=== PATIENT | male | born 1960 | race Caucasian/White ===

== ENCOUNTER → 2018-12-04 10:12 | Outpatient (CLI) | payer OTHER, SELFPAY ==
--- NOTE | 2018-12-04 | DI.RAD.S_ITS ---
PROCEDURE: FL UPPER GI W AIR INDICATIONS: ESOPHAGEAL STRUCTURE COMPARISON: [facility], , BARIUM SWALLOW, 07/06/2012, 8:06. FINDINGS: KUB: Preprocedural ramp agent film demonstrates a normal bowel gas pattern. No suspicious abdominal calcifications. Visualized solid organ contours appear normal. Bony structures appear unremarkable. Esophagus: Esophageal mucosa is normal on air-contrast views. On single-contrast views, there are a few episodes of spontaneous, minimal tertiary contractions without retrograde flow ingested contrast. Otherwise, there is normal esophageal peristalsis. No strictures, extrinsic mass effects, or diverticula. No hiatal hernia or elicited gastroesophageal reflux. Stomach: The stomach is normally distensible, with normal rugal fold thickness. No mucosal masses or ulcers. Pylorus and duodenal bulb appear normal in morphology. Duodenal folds are normal in thickness as well. Incidental note of a small duodenal diverticulum within the second portion of the duodenum. IMPRESSION: Incidental note of small duodenal diverticulum within the second portion of the duodenum; otherwise, normal examination. Dictated by: Ricardo Polanco M.D. on 12/05/2018 at 11:00 Approved by: Ricardo Polanco M.D. on 12/05/2018 at 11:12
== END ==
PROVIDERS: Family Provider Family Medicine; PCP Family Medicine; Visit Provider Family Medicine
DX: K22.2 Esophageal obstruction (principal); K57.10 Diverticulosis of small intestine without perforation or abscess without bleeding
CPT/HCPCS: 74247

== ENCOUNTER → 2021-06-06 10:51 | Outpatient (CLI) | payer OTHER, SELFPAY ==
--- NOTE | 2021-06-06 | DI.RAD.S_ITS ---
PROCEDURE: XR LUMBAR SPINE 2-3V INDICATIONS: LOW BACK PAIN TECHNIQUE: 3 views of the lumbar spine were acquired. COMPARISON: None. FINDINGS: Bones: 5 [id number] vertebrae are present. Trace retrolisthesis L2 on three, L3 on four, and trace anterolisthesis L4 on five. Moderate disc height loss at L2-3 and L3-4 with endplate spur formation. Facet sclerosis and mild hypertrophy at L5-S1.. No vertebral body compression fractures. No suspicious bony lesions. Soft tissues: Overlying bowel gas pattern is normal. No suspicious soft tissue calcifications. IMPRESSION: Mild multilevel degenerative disc height loss, endplate changes, and spondylosis. Dictated by: Giovanna Lieberman M.D. on 06/06/2021 at 13:03 Approved by: Giovanna Lieberman M.D. on 06/06/2021 at 13:04
== END ==
PROVIDERS: PCP Family Medicine; Referring Provider Family Medicine; Visit Provider Family Medicine
DX: M54.5 Low back pain (principal); M47.817 Spondylosis without myelopathy or radiculopathy, lumbosacral region
CPT/HCPCS: 72100

== ENCOUNTER → 2022-10-14 09:07 | Outpatient (CLI) | payer OTHER, SELFPAY ==
[2022-10-14 11:04] LABS: COVID19 -Nasal RAPID Negative (Negative)
== END ==
PROVIDERS: PCP Family Medicine; Visit Provider Surgery
DX: Z20.822 Contact with and (suspected) exposure to COVID-19 (principal); Z01.812 Encounter for preprocedural laboratory examination
CPT/HCPCS: 87635; C9803

== ENCOUNTER 2022-10-15 07:45 | Day surgery (SDC) | payer OTHER, SELFPAY ==
--- NOTE | 2022-10-15 07:46 | P.HP_ITS ---
History of Present Illness History of Present Illness Date Patient Seen: 10/15/22 Time Patient Seen: 07:46 Chief complaint: SDC Narrative: The patient presents for colorectal screening. Prior colonoscopy 10 years ago normal.. No personal or family history of colon cancer. On further history denies any recent gastrointestinal symptoms. No nausea, vomiting, abdominal pain, loss of appetite, unexplained weight loss, change in bowel habits, diarrhea, constipation, melena, hematochezia, or bright red blood per rectum. Patient History Medical History Facet arthropathy, lumbar HNP (herniated nucleus pulposus) Family & Social History Family History Unknown No pertinent family history Tobacco & Substance use: Smoking Status Never smoker alcohol intake never Meds Home Medications and Allergies Allergies Allergy/AdvReac Type Severity Reaction Status Date / Time No Known Drug Allergies Allergy Verified 10/15/22 08:10 Exam Narrative Exam Narrative: General adult male alert oriented no acute distress Chest nonlabored respiration Abdomen soft nontender nondistended Assessment & Plan Assessment & Plan narrative: The patient requires colorectal screening and colonoscopy is recommended. Technical details were discussed. Risks, benefits, alternatives explained. Risks including but not limited to myocardial infarction, aspiration, bleeding, pain, missed lesion, incomplete examination, need for further radiographic stud ies, colonic perforation, and need for major abdominal surgery were discussed. All questions were answered to their satisfaction, and they are in agreement with this plan. Time Spent With Patient Critical Care time: I spent a total of [] minutes of critical care time on this patient's care today; this time is exclusive of procedural time.
--- NOTE | 2022-10-15 08:15 | PM.OP.COLON ---
Operative Date/Time/Diagnoses Date of procedure: 10/15/22 Time of procedure: 08:15 Pre-op diagnosis: Screening colon cancer Post-op diagnosis: other (Normal colonoscopy) Procedure & Clinicians Study performed: Colonoscopy Same procedure as scheduled: Yes Indications: Screening Surgeon: Luis Hankins Procedure Notes Procedure in detail: The history and physical was performed/updated and the patient is ASA class is 1. The procedure was discussed in detail with the patient. Potential risks complications including infection, bleeding, missed diagnosis, perforation, need for surgery, and were explained. Their questions were answered and informed consent was obtained. Patient was brought to the procedure room and placed standard monitoring equipment. The patient's vital signs were monitored continuously throughout the entire procedure. Prior to starting time-out was performed. The patient was placed in the left lateral recumbent position. Procedural sedation was administered by anesthesia. Examination began with a thorough inspection of the perianal area there was no evidence of fissures, fistulae, external hemorrhoids or cutaneous malignancy. The colonoscopy scope was then placed into the anal canal and was advanced to the cecum, which was identified by the ileocecal valve, the appendiceal orifice and the confluence of the taenia. The scope was then slowly withdrawn examining colon thoroughly in all directions, irrigating it of any residual stool. FINDINGS 1. No masses polyps 2. Sigmoid-mild diverticulosis 3. Grade 1 internal hemorrhoids 4. Normal prostate The patient tolerated the procedure well. They will be discharged once criteria are met. The prep was of good/excellent quality. The withdrawl time was 7 minutes. Complications: none Impression: Normal colonoscopy Post-procedure Recommendations: Colonoscopy in 10 years and High fiber diet Disposition: same day surgery
[2022-10-15 08:19] VITALS: BP 139/86; PULSE 73; RESP 16; TEMP 36.2; O2SAT 98; BMI 26.9
[2022-10-15] MEDS: LACTATED RINGERS 1,000 ML 200 ML IV (08:26)
[2022-10-15 09:20] VITALS: BP 113/72; PULSE 64; RESP 18; TEMP 36.2; O2SAT 96
[2022-10-15 09:25] VITALS: BP 110/72; PULSE 66; RESP 14; O2SAT 95
[2022-10-15 09:30] VITALS: BP 111/72; PULSE 64; RESP 16; O2SAT 96
[2022-10-15 09:39] VITALS: BP 125/69; PULSE 65; RESP 16; TEMP 36.2; O2SAT 96
== END 2022-10-15 09:43 | disposition home or self-care (01) ==
PROVIDERS: PCP Family Medicine; Referring Provider Surgery; Visit Provider Surgery
PROC: 0DJD8ZZ Inspection of Lower Intestinal Tract, Via Natural or Artificial Opening Endoscopic (ICD-10-PCS; CPT 45378; principal; 2022-10-15 08:45)
DX: Z12.11 Encounter for screening for malignant neoplasm of colon (principal); K57.30 Diverticulosis of large intestine without perforation or abscess without bleeding; K64.0 First degree hemorrhoids
CPT/HCPCS: 45378; J2704; J3010